=== PATIENT | female | born 1960 | race Caucasian/White ===

== ENCOUNTER → 2020-12-24 07:43 | Outpatient (CLI) | payer MEDICARE, SELFPAY ==
--- NOTE | ~2020-12-24 | US_ITS ---
US right upper quadrant INDICATION: Liver function test abnormal PROCEDURE: Realtime right upper abdominal ultrasound. COMPARISON: No prior studies for comparison. FINDINGS: The pancreas is normal without focal mass or pancreatic ductal dilation. Liver echotexture is normal without focal mass or intrahepatic biliary dilatation. There is normal directional flow i n the portal vein. The gallbladder is normal without stones, gallbladder wall thickening or pericholecystic fluid. Comm on bile duct measures 3 mm. No sonographic Braxton's sign. IMPRESSION: 1: Normal limited abdominal ultrasound. Reviewed, dictated and finalized at location D.
== END ==
PROVIDERS: PCP Internal Medicine; Visit Provider Internal Medicine
DX: R94.5 Abnormal results of liver function studies (principal)
CPT/HCPCS: 76705

== ENCOUNTER 2021-04-16 10:47 | Emergency (ER) | payer MEDICARE, SELFPAY ==
[2021-04-16 10:57] VITALS: BP 138/68; PULSE 71; RESP 16; TEMP 37.5; O2SAT 99
--- NOTE | 2021-04-16 11:23 | ED.SKABFB ---
HPI - Skin/Abscess/Foreign Bdy General Chief complaint: Skin/Abscess/Foreign Body Stated complaint: dog bite Time Seen by Provider: 04/16/21 11:24 Source: patient and RN notes reviewed Mode of arrival: ambulatory Limitations: no limitations History of Present Illness HPI narrative: 60-year-old female presents with concern for dog bite to the right forearm. Reports her dog bit her this morning. Reports a large purple bump at the bite site. Reports she is on blood thinners. She denies redness, warmth to the area. Denies currently bleeding. MD complaint: other (Dog bite) Related Data Home Medications Medication Instructions Recorded Confirmed atorvastatin 40 mg PO DAILY 04/16/21 04/16/21 carbidopa-levodopa 1 tablet PO DAILY 04/16/21 04/16/21 clopidogrel 75 mg PO DAILY 04/16/21 04/16/21 metoprolol tartrate 25 mg PO DAILY 04/16/21 04/16/21 Allergies Allergy/AdvReac Type Severity Reaction Status Date / Time hydrocodone Allergy Unknown Unknown Unverified 04/16/21 11:19 ioversol Allergy Unknown Unknown Verified 04/16/21 11:19 tramadol Allergy Unknown Unknown Verified 04/16/21 11:19 prednisone AdvReac Hypertensio Verified 04/16/21 11:[address] DYE Allergy Severe ANAPHYLAXIS Uncoded 06/22/14 15:42 Contrast Media Allergy Mild Stopped Uncoded 07/24/03 16:12 Breathing CLARITHROMYCIN (Generic Allergy Unknown Y Uncoded 07/24/03 16:12 Allergy) DIAGNOSTIC Allergy Unknown Unknown Uncoded 04/16/21 11:19 FISH-HIVES Allergy Unknown Unknown Uncoded 04/16/21 11:19 IODIPAMIDE MEGLUMINE Allergy Unknown Y Uncoded 07/24/03 16:12 (Generic Allergy) MACROLIDES Allergy Unknown Unknown Uncoded 04/16/21 11:19 Review of Systems Review of Systems: CONSTITUTIONAL: Denies malaise, chills, sweats, or fever. SKIN: Reports puncture wounds to the right forearm with surrounding swelling and bruising MUSCULOSKELETAL: Denies muscle skeletal pain or myalgia. NEUROLOGIC: Denies numbness, weakness All systems reviewed & are unremarkable except as noted in HPI and below PMFSH Family History Family History (Updated 04/02/16 @ 09:11 by DOCTOR UNKNOWN) Mother Family history of arthritis Family history of Parkinson's disease Family history of dementia Family history of scoliosis Father Family history of Parkinson's disease Sibling Family history of lung cancer Family history of malignant neoplasm of brain Other Carcinoma of colon Social History Social History Smoking status: Never smoker Alcohol intake: never Comments At time of signature, agree with nursing past medical, surgical, social and family history. There is no relevant family history pertinent to the presenting complaint Exam Narrative: GENERAL: Well-appearing, well-nourished, and in no acute distress. HEAD: Normocephalic, atraumatic. EYES: PERRLA, conjunctivae clear NECK: Supple. CHEST: Speaks in full sentences. No respiratory distress. HEART: Regular rate and rhythm. Normal and equal peripheral pulses. EXTREMITIES: Right forearm has normal strength and sensation, normal range of motion. Normal sensation with sensitivity to light touch and pain. No skin tenting, no devitalized tissue or atrophy, no trophic changes, no obvious deformity, alignment normal, nearby joints and structures intact. Distal pulses palpable and equal bilaterally, skin warm, dry, pink. Capillary refill less than 3 seconds. SKIN: Warm, dry, no rash. 4 cm x 3 cm hematoma to the right forearm with 2 scabbed puncture wounds. No induration, erythema, warmth noted NEURO: Alert and oriented x3. PSYCH: Normal mood and affect Course Course Emergency Course: Patient is aware of diagnosis, understands and agrees to treatment plan. Anticipatory guidance given. Patient agrees to follow-up as directed and is aware of reasons to seek care at the emergency department. Portions of this record may have been created with voice recognition software Vital Signs Vital signs: Vital Signs Tempera
== END 2021-04-16 11:45 | disposition home or self-care (01) ==
PROVIDERS: Emergency Provider Nurse Practitioner; PCP Internal Medicine
DX: S50.11XA Contusion of right forearm, initial encounter (principal); W54.0XXA Bitten by dog, initial encounter
CPT/HCPCS: 99212; G0463

== ENCOUNTER 2021-06-04 14:56 | Outpatient (CLI) | payer MEDICARE, SELFPAY ==
--- NOTE | ~2021-06-04 | CT_ITS ---
EXAMINATION: CT abdomen pelvis wo con DATE: 06/04/2021 15:25 INDICATION: Left upper quadrant pain. TECHNIQUE: Computed tomography (CT) of the abdomen and pelvis was performed without intravenous contr ast. The dose-length product was 177.42 mGy-cm. Automated exposure control and iterative reconstructi on technique were employed. COMPARISON: CT dated 09/13/2007 FINDINGS: Heart size is normal. No significant pleural or pericardial effusion. There are calcified g ranulomas of the spleen. The liver, pancreas, adrenal glands and kidneys are unremarkable. The gallbl adder is present. No significant vascular abnormality. No lymphadenopathy. Normal appendix. Nonobstru ctive bowel gas pattern. No free air or free fluid. There is dextrocurvature of the lumbar spine. IMPRESSION: 1. No acute abdominal abnormality. Reviewed, dictated and finalized at location B. [employer]
== END 2021-06-04 14:57 | disposition home or self-care (01) ==
PROVIDERS: PCP Internal Medicine; Visit Provider Internal Medicine
DX: R10.12 Left upper quadrant pain (principal)
CPT/HCPCS: 74176

== ENCOUNTER → 2022-07-21 09:47 | Outpatient (CLI) | payer MEDICARE, SELFPAY ==
--- NOTE | ~2022-07-21 | US_ITS ---
Limited Abdominal Sonogram: Real-time sonographic imaging of the right upper quadrant was performed. Clinical History: Elevated alkaline phosphatase Findings: The liver appears normal with no evidence of mass lesion or bile duct dilatation. Main por dawood vein demonstrates normal direction of flow. The gallbladder is well distended, and appears normal with no evidence of gallstone or wall thickening. The common bile duct measures 3 mm. The visualize d pancreas, aorta, and IVC are unremarkable. Right kidney measures 9.9 cm in length. No hydronephrosi s. Impression: No significant abnormality seen. Reviewed, dictated and finalized at location . [employer] Impression: No significant abnormality seen.
== END ==
PROVIDERS: PCP Internal Medicine; Visit Provider Internal Medicine
DX: R74.8 Abnormal levels of other serum enzymes (principal)
CPT/HCPCS: 76705